=== PATIENT | male | born 1995 | race Caucasian/White ===

== ENCOUNTER 2020-04-11 12:58 | Emergency (ER) | payer OTHER ==
[~2020-04-11] VITALS: Ht 188 cm; Wt 82.0 kg
[2020-04-11] MEDS ORDERED: HYDROmorphone 1 MG/ML, 1ML INJ ONE (13:18)
[2020-04-11] MEDS ORDERED: ONDANSETRON 2MG/ML, 2ML ONE (13:18)
--- NOTE | 2020-04-11 13:27 | NUR ---
THIS IS A 24 YO M W/ C/O LT SHOULDER INJURY TODAY WHILE SKIING. PT IN 01/10 PAIN, POSITIVE DEFORMITY. PT RESTING ON [employer] W/ CALL LIGHT IN REACH AND SIDE RAILS UPX2. RESP EVEN AND UNLABORED, SAM.
--- NOTE | 2020-04-11 13:28 | NUR ---
PIV STARTED, PT MEDICATED PER EMAR.
[2020-04-11] MEDS ORDERED: ONDANSETRON 2MG/ML, 2ML IVPush ONE (13:30)
[2020-04-11] MEDS ORDERED: HYDROmorphone 1 MG/ML, 1ML INJ IV ONE (13:30)
[2020-04-11] MEDS ORDERED: SODIUM CHLORIDE FLUSH 10ML SYR IVF ONE (13:30)
--- NOTE | 2020-04-11 13:47 | NUR ---
LAST PO 07 THIS AM.
--- NOTE | 2020-04-11 13:49 | NUR ---
PT. REFUSING SACRUM/COCCYX XRAY AT THIS TIME; SHOULDER XRAY WAS DONE.
[2020-04-11] MEDS ORDERED: PROPOFOL 10 MG/ML, 20ML ONE ×2 (13:55→14:11)
--- NOTE | 2020-04-11 14:17 | NUR ---
LATE ENTRY 1403: 50MG PROPOFOL, VSS 1404: 50MG PROPOFOL 1406: 50MG PROPOFOL, VSS 1409: 50MG PROPOFOL, VSS 1414: 50MG PROPOFOL, VSS 1416: LT SHOULDER REDUCED, VSS 1419: VSS 1421: VSS Addendum: 04/11/20 at 1612 by [email or web address] LATE ENTRY 1403: 50MG PROPOFOL, VSS 1404: 50MG PROPOFOL 1406: 50MG PROPOFOL, VSS 1409: 50MG PROPOFOL, VSS 1411: 50MG PROPOFOL 1414: 50MG PROPOFOL, VSS 1416: LT SHOULDER REDUCED, VSS 1419: VSS 1421: VSS 300MG PROPOFOL TOTAL GIVEN BY .
--- NOTE | 2020-04-11 14:18 | NUR ---
SEE PAPER CHARTING FOR VS.
--- NOTE | 2020-04-11 14:21 | NUR ---
PT AWAKE AND ALERT, ANSWERING QUESTIONS APPROPRIATELY. VSS, NADN.
[2020-04-11 14:30] VITALS: BP 142/86
[2020-04-11] MEDS ORDERED: PROPOFOL 10 MG/ML, 20ML IVPush ONE (15:00)
--- NOTE | 2020-04-11 15:20 | NUR ---
PT AWAKE AND ALERT, VSS, NADN.
--- NOTE | 2020-04-11 16:08 | NUR ---
PT VERBALIZED UNDERSTANDING OF DC INSTRUCTIONS, AWAKE AND ALERT, AIRWAY PATENT. CONVERSING W/O DIFFICULTY. AMBULATORY W/ A STEADY GAIT TO DC DESK.
--- NOTE | 2020-04-11 17:00 | NUR ---
100MG PROPOFOL WASTED W/ BE[place]LLIS.
== END 2020-04-11 16:11 | disposition home or self-care (01) ==
LOC: ED 13:52
DX: S43.085A Other dislocation of left shoulder joint, initial encounter (principal); M54.5 Low back pain; W18.30XA Fall on same level, unspecified, initial encounter; Y93.89 Activity, other specified; Y92.89 Other specified places as the place of occurrence of the external cause; Y99.8 Other external cause status
CPT/HCPCS: 23650; 73020; 73030; 96374; 96375; 99152; 99285; J1170; J2405